=== PATIENT | female | born 1955 | race Caucasian/White ===

== ENCOUNTER 2021-07-25 18:00 | Emergency (ER) | payer MEDICARE, OTHER, SELFPAY ==
[2021-07-25] VITALS (8 sets, daily range): BP systolic 107–126; BP diastolic 63–84; PULSE 80–91; RESP 15–18; TEMP 36.8–37.3; O2SAT 93–98; BMI 22.4
--- NOTE | 2021-07-25 17:58 | ECG_ITS ---
APPROVED REPORT Exam: Resting ECG HR:89 bpm ECG Measurements Heart Rate 89 AXES TX 162 P 65 QRSd 84 QRS 45 QT 358 T 61 QTc 435 Conclusion Normal sinus rhythm Nonspecific T wave abnormality Abnormal ECG Electronically signed by : Carlos Pace MD 07/27/2021 06:20:07
--- NOTE | 2021-07-25 18:11 | XR_ITS ---
PROCEDURE INFORMATION: Exam: XR Chest Exam date and time: 07/25/2021 6:11 PM Age: 65 years old Clinical indication: Sternal or substernal pain; Prior surgery; Surgery date: 6+ months; Surgery type: Cardiac stents. ; Patient HX: Chest pain for almost 2 hours. Smoker. Cardiac stents in place. TECHNIQUE: Imaging protocol: XR of the chest. Views: 1 view. Total images: 1 COMPARISON: No relevant prior studies available. FINDINGS: Lungs: Normal pulmonary expansion. Pulmonary vasculature grossly normal. No gross pulmonary infiltrates or edema pattern. Pleural spaces: No pleural effusion. No pneumothorax. Heart/Mediastinum: Heart size normal. No tracheal/mediastinal shift. Bones/joints: Osteopenia. Long segment osteolytic process in the central medullary space of the proximal right humerus extending at least 11 cm in length involving the proximal diaphysis, metaphysis, and humeral head. There is associated cortical thinning with focal cortical expansion or penetration anteromedially in the proximal diaphysis. No pathological fracture is evident. This is nonspecific in nature. Myeloma could produce this appearance. Osteolytic metastasis would be another possibility although no other similar foci are identified elsewhere. Correlate with SPEP. Recommend nonemergent shoulder MRI or PET-CT. Intraperitoneal space: Right upper quadrant surgical clips suggest prior cholecystectomy. IMPRESSION: 1. No acute intrathoracic process. 2. Long segment intramedullary osteolytic process in the proximal right humerus. Cannot exclude malignancy such as myeloma or metastasis. Please see recommendations above.
[2021-07-25 18:35] LABS: Basophils # 0.1 K/mm3 (0-0.2); Basophils % 1.5 % (0.1-2.0); Eosinophils # 0.2 K/mm3 (0.0-0.4); Eosinophils % 2.9 % (0.1-12.0); Hematocrit 38.2 % (37.0-47.0); Hemoglobin 13.8 g/dL (12.2-16.2); Lymphocytes # 1.6 K/mm3 (0.7-4.5); Lymphocytes % 21.2 % (10-50); Mean Corpuscular HGB Conc 36.2 g/dL (31.8-35.4); Mean Corpuscular Hemoglobin 33.5 pg (27.0-31.2); Mean Corpuscular Volume 92.6 fl (81-99); Mean Platelet Volume 8.5 fl (7.4-10.4); Monocytes # 0.5 K/mm3 (0.1-1.0); Monocytes % 6.5 % (1.7-9.3); Neutrophils % 67.9 % (37.0-80.0); Platelet Count 201 K/mm3 (142-424); Red Blood Count 4.13 M/mm3 (4.20-5.40); Red Cell Distribution Width 13.1 % (11.5-17.5); White Blood Count 7.3 K/mm3 (4.8-10.8)
[2021-07-25 18:38] LABS: Chloride 105 mmol/L (98-107); Sodium 138 mmol/L (136-145)
[2021-07-25 18:40] LABS: Alanine Aminotransferase 16 U/L (12-78); Alkaline Phosphatase 86 U/L (38-126); Anion Gap 7.8 mEq/L (5-15); Aspartate Amino Transferase 26 U/L (14-36); Bilirubin,Total 0.7 mg/dl (0.2-1.3); Blood Urea Nitrogen 12 mg/dl (7-17); Carbon Dioxide 28 mmol/L (22.0-30.0); Creatinine Clearance Estimated 53 mL/min (50-200); Estimated Glomerular Filt Rate 72 ml/min (>60); GFR (African American) 87 ML/MIN (>60)
[2021-07-25 18:41] LABS: Albumin Level 3.9 g/dl (3.5-5.0); Albumin/Globulin Ratio 1.1 (1.1-1.8); Amylase 64 U/L (30-110); Calcium 9.5 mg/dl (8.4-10.2); Globulin 3.4 g/dL (1.3-3.2); Glucose 100 mg/dl (74-100); Lipase 65 U/L (23-300); Total Protein,Serum 7.3 g/dl (6.3-8.2)
[2021-07-25 18:46] LABS: Potassium 2.8 mmoL/L (3.5-5.1)
--- NOTE | 2021-07-25 18:46 | PC.NURSE ---
potassium 2.8 repeated and verified with lab. Notified MD
--- NOTE | 2021-07-25 18:49 | [facility].EDGENADL ---
ED Disposition Condition on Discharge: Fair - Critical Care Critical Care Time: No <NimaDeepak sampson - Last Filed: 07/25/21 20:43> <Homar Mojica - Last Filed: 07/25/21 22:30> Clinical Impression: Right upper quadrant pain, Lytic lesion of bone on x-ray, Sphincter of Oddi dysfunction, Hypokalemia Disposition: Home, Self-Care Instructions: DI for Acute Abdominal Pain Additional Instructions: see pcp for follow up Referrals: Feng Kidd [Primary Care Provider] - Attestation: On 07/25/21, the high probability of a clinically significant, sudden or life threatening deterioration of the following system(s) required my full and direct attention, intervention and personal management. The time I documented below is in addition to time spent performing reported procedures but includes the following listed in this critical care notation. Medical Decision Making - Arnaldo Inquiry Pt receiving controlled substance: Yes Arnaldo was queried for this patient: Yes Risks and benefits of using a controlled substance: were not discussed with pt by me - Lab Data Result diagrams: 07/25/21 18:25 07/25/21 18:25 - Radiology Data #1 Image(s): Chest Image Reviewed: Yes I reviewed the patient's radiology image, Yes I discussed the image results w/the radiologist, Yes I have reviewed radiologist's interpretation <Deepak Bach - Last Filed: 07/25/21 20:43> - Medical Records Medical records reviewed: Yes: I reviewed the patient's medical records. - Lab Data Lab results reviewed: Yes: I reviewed the patient's lab results. Result diagrams: 07/25/21 18:25 07/25/21 18:25 - CT Data CT Scan: Abdomen, Pelvis, Chest, Other (rt upper ext ) Time Received: 21:[address] Reviewed: Yes: I have viewed the radiologist's interpretation Preliminary Findings: Normal/NAD (no def abn) <Homar Mojica - Last Filed: 07/25/21 22:30> Vital Signs: 07/25/21 18:01 07/25/21 18:15 07/25/21 19:30 Temperature 99.2 F Temperature Source Oral Pulse Rate 85 90 Pulse Rate [Radial] 91 H Respiratory Rate 16 17 16 Blood Pressure 126/76 124/63 Blood Pressure [Right Arm] 124/76 Blood Pressure Mean [Right Arm] 92 Blood Pressure Position [Right Arm] Sitting 02 Sat by Pulse Oximetry 96 98 95 Oxygen Delivery Method Room Air Room Air 07/25/21 19:36 07/25/21 20:00 07/25/21 21:04 Temperature Temperature Source Pulse Rate 89 91 H 86 Pulse Rate [Radial] Respiratory Rate 16 15 16 Blood Pressure 124/63 120/72 112/72 Blood Pressure [Right Arm] Blood Pressure Mean [Right Arm] Blood Pressure Position [Right Arm] 02 Sat by Pulse Oximetry 94 L 94 L 93 L Oxygen Delivery Method Room Air Room Air Room Air 07/25/21 21:30 Temperature Temperature Source Pulse Rate 87 Pulse Rate [Radial] Respiratory Rate 15 Blood Pressure 107/65 L Blood Pressure [Right Arm] Blood Pressure Mean [Right Arm] Blood Pressure Position [Right Arm] 02 Sat by Pulse Oximetry 93 L Oxygen Delivery Method Room Air - Lab Data Lab Results 07/25/21 18:25: WBC 7.3, RBC 4.13 L, Hgb 13.8, Hct 38.2, MCV 92.6, MCH 33.5 H, MCHC 36.2 H, RDW 13.1, Plt Count 201, MPV 8.5, Neut % (Auto) 67.9, Lymph % (Auto) 21.2, [place] % (Auto) 6.5, Eos % (Auto) 2.9, Baso % (Auto) 1.5, Neut # (Auto) 5.0, Lymph # (Auto) 1.6, [place] # (Auto) 0.5, Eos # (Auto) 0.2, Baso # (Auto) 0.1 07/25/21 18:25: Sodium 138, Potassium 2.8 L*, Chloride 105, Carbon Dioxide 28, Anion Gap 7.8, BUN 12, Creatinine 0.80, Estimated Creat Clear 53, Estimated GFR 72, Est GFR ( Amer) 87, Glucose 100, Calcium 9.5, Total Bilirubin 0.7, AST 26, ALT 16, Alkaline Phosphatase 86, Total Protein 7.3, Albumin 3.9, Globulin 3.4 H, Albumin/Globulin Ratio 1.1 07/25/21 18:25: Troponin I < 0.01, Amylase 64, Lipase 65 07/25/21 18:25: D-Dimer 0.97 H 07/25/21 19:00: SARS-CoV-2 (PCR) Not detected, Influenza A Untype (PCR) Not detected, Influenza Type B (PCR) Not detected 07/25/21 21:35: Troponin I < 0.01
[2021-07-25 18:55] LABS: Troponin I < 0.01 ng/ml (0.00-0.034)
[2021-07-25 19:14] LABS: Coronavirus 19, PCR Not Detected (NotDetected); Influenza A, PCR Not Detected (NotDetected); Influenza B, PCR Not Detected (NotDetected)
[2021-07-25 19:19] LABS: D-Dimer 0.97 ug/mL (0.0-0.5)
--- NOTE | 2021-07-25 19:32 | CT_ITS ---
PROCEDURE INFORMATION: Exam: CT Abdomen And Pelvis With Contrast Exam date and time: 07/25/2021 7:32 PM Age: 65 years old Clinical indication: Abdominal pain; Additional info: Ruq pain TECHNIQUE: Imaging protocol: Computed tomography of the abdomen and pelvis with contrast. Total images: 837 Radiation optimization: All CT scans at this facility use at least one of these dose optimization techniques: automated exposure control; mA and/or kV adjustment per patient size (includes targeted exams where dose is matched to clinical indication); or iterative reconstruction. Contrast material: ISOVUE; Contrast volume: 70 ml; Contrast route: IV; COMPARISON: CR XR CHEST PORTABLE 07/25/2021 6:30 PM FINDINGS: Mediastinal space: The visualized distal esophagus is largely contracted without gross abnormality. Liver: Normal contour. No mass lesions. Slight intrahepatic biliary ductal dilatation. Gallbladder and bile ducts: Prior cholecystectomy with expected mild postoperative dilatation of the common bile duct. Pancreas: Normal. No inflammatory changes or ductal dilation. Spleen: Normal. No splenomegaly. Adrenal glands: Normal. No adrenal mass. Kidneys and ureters: No acute abnormalities. No hydronephrosis or hydroureter. No urinary tract stones are identified.Mixed phase contrast injection with excreted contrast in the renal collecting systems limiting sensitivity for small stones. There is a 5 mm right renal cortical cyst which does not require further assessment. Stomach and bowel: The stomach is largely contracted without gross abnormality. The small bowel is nondilated with no gross abnormality. No acute colonic abnormalities. Appendix: The appendix is not identified. No secondary signs of appendicitis. Intraperitoneal space: No free fluid or air. Vasculature: Moderate atherosclerotic aortoiliac calcification without aneurysm. Lymph nodes: No adenopathy. Urinary bladder: Unremarkable as visualized. Reproductive: Prior hysterectomy. Bones/joints: No acute osseous abnormalities. Mild disc space narrowing and 3 mm retrolisthesis L1-L2 with mild anterior spurring. Soft tissues: Very small fatty umbilical hernia . No evidence of associated bowel herniation or strangulation. IMPRESSION: 1. No acute intra-abdominal/intrapelvic process. 2. Nonemergent findings detailed above.
--- NOTE | 2021-07-25 19:32 | CT_ITS ---
PROCEDURE INFORMATION: Exam: CTA Chest With Contrast Exam date and time: 07/25/2021 7:32 PM Age: 65 years old Clinical indication: Sternal or substernal pain; Additional info: Chest pain, pleuritic, elev d-dimer TECHNIQUE: Imaging protocol: Computed tomographic angiography of the chest with contrast. 3D rendering (Not supervised by radiologist): MIP and/or 3D reconstructed images were created by the technologist. Total images: 794 Radiation optimization: All CT scans at this facility use at least one of these dose optimization techniques: automated exposure control; mA and/or kV adjustment per patient size (includes targeted exams where dose is matched to clinical indication); or iterative reconstruction. Contrast material: ISOVUE; Contrast volume: 70 ml; Contrast route: INTRAVENOUS (IV); COMPARISON: CR XR CHEST PORTABLE 07/25/2021 6:30 PM FINDINGS: Pulmonary arteries: The pulmonary arteries enhance appropriately with no evidence of pulmonary embolism. Aorta: The aorta enhances appropriately without evidence of dissection or aneurysm. No mediastinal hematoma. Mild aortic ectasia/tortuosity. Thyroid: The visualized thyroid gland demonstrates no gross abnormality. Lungs: Mild-moderate bilateral bronchial wall thickening suggesting an element of bronchitis or bronchial edema, with no evidence of bronchiectasis or bronchial occlusions. There is peripheral fibrosis with mild peripheral fibrocystic change in the posterior and lateral lung bases. There is intermixed patchy peripheral alveolar opacity in a similar distribution bilaterally which is nonspecific in nature. This may relate to chronic atelectasis and scarring, versus elements of active noninfectious alveolitis related to chronic interstitial lung disease. Elements of peripheral infectious pneumonia considered less likely although not excluded. Granulomatous calcification in the posterior left lung base and subcarinal region. 6.5 mm noncalcified juxtapleural pulmonary nodule versus intrapulmonary node along the minor fissure. For patients at low risk (minimal or absent history of smoking and of other known risk factors), recommend CT at 6-12 months, then consider CT at 18-24 months. For patients at high risk (history of smoking or of other known risk factors), recommend CT at 6-12 months, then CT at 18-24 months. (Ricardo et al., Fleischner Society, 2017). Pleural spaces: Mild-moderate bilateral apical pleural/parenchymal calcific scarring. No pleural effusion. No pneumothorax. Heart: Heart size normal. Mild coronary artery calcification. No pericardial effusion. Mediastinal space: The esophagus is largely contracted but demonstrates no gross abnormality. Lymph nodes: No supraclavicular or axillary adenopathy. No mediastinal marie enlargement. Mildly enlarged right inferior hilar nodes, nonspecific. Gallbladder and bile ducts: Prior cholecystectomy with expected mild postoperative dilatation of the common bile duct. Kidneys and ureters: Small right renal cortical cyst which does not require further assessment. Bones/joints: No acute osseous abnormalities are identified. Chronic appearing demineralization with mild peripheral cortical thickening contour irregularity in the right proximal humeral metaphysis partially visualized at the edge of the scan range. The CT features of the visualized portions of the humerus would favor that this relates to the patient's history of remote prior trauma and surgery in the region rather than potential metastasis or myeloma as was suggested radiographically. Soft tissues: The soft tissues of the chest wall demonstrate no acute abnormality.
--- NOTE | 2021-07-25 20:49 | CT_ITS ---
PROCEDURE INFORMATION: Exam: CT Right Upper Extremity Without Contrast, Upper Arm Exam date and time: 07/25/2021 8:49 PM Age: 65 years old Clinical indication: Screening exam; Comparison for lucency TECHNIQUE: Imaging protocol: CT of the Right upper extremity without contrast was performed. Exam focused on the upper arm. Total images: 832 Radiation optimization: All CT scans at this facility use at least one of these dose optimization techniques: automated exposure control; mA and/or kV adjustment per patient size (includes targeted exams where dose is matched to clinical indication); or iterative reconstruction. COMPARISON: CT ANGIO CHEST PE PROTOCOL 07/25/2021 8:19 PM FINDINGS: Bones/joints: The previously identified extensive intramedullary lucency in the proximal right humeral metaphysis is again noted, however this demonstrates mature fat density at -90 Hounsfield units, and there are multiple foci of associated cortical thickening with numerous radiolucent cortical screw tracks in the region, and on CT the appearance is felt to be diagnostic of chronic posttraumatic and postoperative changes. There is no osseous expansion. No osteolysis or endosteal erosion. No periostitis. No shoulder joint effusion. Mild-moderate osteoarthritic changes in the glenohumeral joint. Right AC joint well aligned. Visualized right ribs are intact. The right elbow is normal in appearance. Soft tissues: No gross soft tissue abnormalities. Lungs: Peripheral fibrosis and patchy peripheral alveolar opacities in the right lung again noted, please see chest CT report. IMPRESSION: Chronic changes in the right proximal humerus consistent with remote prior fracture and surgical fixation. There are no imaging features to favor malignancy. No further imaging evaluation is suggested.
[2021-07-25 22:18] LABS: Troponin I < 0.01 ng/ml (0.00-0.034)
== END 2021-07-25 22:58 | disposition home or self-care (01) ==
PROVIDERS: Emergency Provider Emergency Medicine; PCP Pediatrics
DX: K83.09 Other cholangitis (principal); R07.9 Chest pain, unspecified; J44.9 Chronic obstructive pulmonary disease, unspecified; F17.210 Nicotine dependence, cigarettes, uncomplicated; E87.6 Hypokalemia
CPT/HCPCS: 71045; 71275; 73200; 74177; 80053; 82150; 83690; 84484; 85025; 85378; 93005; 96374; 96375; 99283; C9803; J2405; Q9967; U0003; U0005